=== PATIENT | male | born 1995 | race Caucasian/White ===

== ENCOUNTER 2018-08-22 16:27 | Emergency (ER) | payer MEDICAID ==
[~2018-08-22] VITALS: Ht 175.3 cm; Wt 70.0 kg
[2018-08-22 18:51] VITALS: BP 120/87
== END 2018-08-22 18:53 | disposition home or self-care (01) ==
LOC: ER 16:27
DX: F15.10 Other stimulant abuse, uncomplicated (principal); R00.2 Palpitations; F41.9 Anxiety disorder, unspecified; F17.290 Nicotine dependence, other tobacco product, uncomplicated
CPT/HCPCS: 93005; 99283; 99406